=== PATIENT | female | born 1995 | race African-American/Black ===

== ENCOUNTER 2017-11-06 23:53 | Emergency (ER) | payer MEDICAID ==
[~2017-11-06] VITALS: Ht 157.5 cm; Wt 59.0 kg
[2017-11-07] MEDS ORDERED: LORAZEPAM 0.5MG TABLET PO ONE (00:15)
[2017-11-07 02:05] VITALS: BP 111/77
== END 2017-11-07 02:08 | disposition home or self-care (01) ==
LOC: ER 23:53
DX: R00.2 Palpitations (principal); F12.10 Cannabis abuse, uncomplicated
CPT/HCPCS: 81025; 93005; 99283